=== PATIENT | female | born 1955 | race Caucasian/White ===

== ENCOUNTER → 2019-02-19 10:46 | Outpatient (CLI) | payer OTHER, SELFPAY ==
--- NOTE | 2019-02-19 | DI.RAD.S_ITS ---
PROCEDURE: XR WRIST RT 2V INDICATIONS: RIGHT WRIST PAIN TECHNIQUE: 2 views of the wrist were acquired. COMPARISON: None. FINDINGS: Bones: Osteoarthritic changes along radial aspect of right wrist are seen more prominent at first CMC joint. No fractures or dislocations. No suspicious bony lesions. Scaphoid view: Scaphoid is grossly intact. Soft tissues: No suspicious soft tissue calcifications. 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 No fracture or dislocation. Dictated by: David Hwang M.D. on 02/19/2019 at 11:58 Approved by: David Hwang M.D. on 02/19/2019 at 11:58
== END ==
DX: M25.531 Pain in right wrist (principal); M06.9 Rheumatoid arthritis, unspecified; E11.9 Type 2 diabetes mellitus without complications; M19.031 Primary osteoarthritis, right wrist
CPT/HCPCS: 73100